=== PATIENT | female | born 2005 | race Hispanic/Latino ===

== ENCOUNTER 2025-02-19 19:13 | Emergency (ER) | payer SELFPAY ==
[2025-02-19] VITALS (7 sets, daily range): BP systolic 102–109; BP diastolic 66–71; PULSE 76–105; RESP 16; TEMP 36.7–36.9; O2SAT 98–100
--- NOTE | ~2025-02-19 | US_ITS ---
EXAMINATION: US pelvic complete w TV INDICATION: Missed . Fever. Comparison:No prior studies for comparison. TECHNIQUE: Multiple transabdominal and endovaginal sonographic images of the pelvis performed. FINDINGS: The uterus measures 11.2 x 5.6 x 6.7 cm. The endometrial complex measures 2.5 cm. The endometrial complex is thickened and heterogeneous. The right ovary measures 3.1 x 2.4 x 2.4 cm and the left ovary measures 2.9 x 1.6 x 1.8 cm. There are small follicles in each ovary. Normal doppler signal in both ovaries. There is no free fluid in the pelvis. There are no abnormal masses seen on either side. IMPRESSION: 1. Thickened heterogeneous endometrium measuring 2.5 cm, suspicious for retained products of conception. No intrauterine identified. Recommend follow- up with serial quantitative beta-hCG levels and ultrasound as clinically warranted. Reviewed, dictated and finalized at location O. IMPRESSION: 1. Thickened heterogeneous endometrium measuring 2.5 cm, suspicious for retaine d products of conception. No intrauterine identified. Recommend follo w-up with serial quantitative beta-hCG levels and ultrasound as clinically elly anted.
--- NOTE | 2025-02-19 20:16 | PC.NURSE ---
Called radiology to call in US for r/o ectopic
[2025-02-19 22:10] LABS: Hematocrit 33.5 % (37.0-47.0); Hemoglobin 11.0 g/dL (12.0-15.0); Immature Granulocyte Percent A 0.5 % (0-0.5); Lymphocytes Absolute Auto 3.40 K/mm3 (0.9-3.2); Mean Corpuscular HGB Conc 32.8 g/dl (32-36); Mean Corpuscular Hemoglobin 28.5 pg (26-34); Mean Corpuscular Volume 86.8 fl (80-100); Nucleated Red Blood Cells Absolute Auto 0.000 K/mm3 (0.0-0.012); Nucleated Red Blood Cells Perc 0.0 % (0.0-0.2); Platelet Count Result 300 k/mm3 (150-375); Red Blood Count 3.86 M/mm3 (4.2-5.4); White Blood Count 10.8 K/mm3 (4.5-10.0)
[2025-02-19 22:26] LABS: Alanine Aminotransferase 17 U/L (6-35); Albumin Level 4.2 g/dL (3.5-5.1); Alkaline Phosphatase 78 U/L (38-126); Anion Gap 9 mmol/L (4-12); Aspartate Amino Transferase 26 U/L (14-36); Bilirubin,Total 0.3 mg/dL (0.2-1.3); Blood Urea Nitrogen 8 mg/dL (7-17); Calcium 8.9 mg/dL (8.4-10.2); Carbon Dioxide 23 mmol/L (22-30); Chloride 107 mmol/L (98-107); Estimated CRCL calculation 116 ml/min; Estimated Glomerular Filt Rate > 60; Glucose 128 mg/dL (65-110); Lipase 199 U/L (23-300); Magnesium 1.8 mg/dL (1.6-2.3); Potassium 3.8 mmol/L (3.4-5.0); Sodium 139 mmol/L (137-145); Total Protein 7.2 g/dL (6.3-8.2)
[2025-02-19 22:41] LABS: Beta HCG Quantitative 5113.00 mIU/ML
--- NOTE | 2025-02-19 22:41 | ED.FEMALEGU ---
HPI - Female Genitourinary General Chief complaint: PROOFER Stated complaint: incomplete Time Seen by Provider: 02/19/25 21:59 History of Present Illness HPI Narrative: Patient is 20-year-old female who presents emergency department this evening complaining of a missed . Patient states that on Saturday of this week she went to a clinic requesting an . States that at that time she was told she is approximately 8 weeks . Patient states that this is her 2nd , and has had two full-term births. Patient states that she was administered for pills of misoprostol which she took on Saturday but did not pass any tissue, only light bleeding. Patient called the clinic again on and was instructed to come in for another dose and was administered an additional 4 pills of misoprostol, however, patient has not passed any products of conceptions patient call the clinic again and informed her that they would not be able to see her until Saturday of next week. Patient did not want to wait until then so she decided to come here for further evaluation. States that she has not established with a single OB, she states that she always goes to an OB Clinic and sees whoever is on-call. Denies any active bleeding, abdominal pain. No additional symptoms or concerns at this time. Related Data Allergies Allergy/AdvReac Type Severity Reaction Status Date / Time No Known Allergies Allergy Verified 02/19/25 19:45 Review of Systems Review of Systems: All systems are reviewed and are negative unless stated otherwise in the HPI. Exam Narrative: General: Alert, awake, afebrile, in no acute distress. HEENT: PERRL, no rhinorrhea, no post nasal drip, oropharynx clear. Neck: Trachea midline, no JVD, no lymphadenopathy. Cardiovascular: Regular rate and rhythm, no murmurs, rubs or gallops, no peripheral edema. Respiratory: Clear to auscultation bilaterally, no tachypnea, no wheezing, no rhonchi, no rubs, no respiratory distress. Abdomen: Soft, nontender, nondistended, no rebound, no guarding, no peritoneal signs. Musculoskeletal: No joint swelling or deformity, normal muscle tone. Skin: No rashes or petechia, no signs of infection. Psychiatric: Alert and oriented, normal behavior and judgment for situation. Neurological: Alert and oriented to person, place, and time. Follows all commands. No focal deficits, speech is clear and fluent. Course Vital Signs Vital signs: Vital Signs Temperature 98.4 F 02/19/25 19:34 Pulse Rate 105 H 02/19/25 19:34 Respiratory Rate 16 02/19/25 19:34 Blood Pressure 109/66 02/19/25 19:34 Pulse Oximetry 99 02/19/25 19:34 Oxygen Delivery Room Air 02/19/25 19:34 Temperature 98.4 F 02/19/25 19:34 Pulse Rate 105 H 02/19/25 19:34 Respiratory Rate 16 02/19/25 19:34 Blood Pressure 109/66 02/19/25 19:34 Pulse Oximetry 99 02/19/25 19:34 Oxygen Delivery Room Air 02/19/25 19:34 MDM - Female Genitourinary MDM Narrative Medical decision making narrative: The patient was evaluated by myself in the emergency department. History is obtained from patient who is an independent historian and physical exam was performed. External medical records were reviewed at this time. IV was established and pertinent tests were ordered. Laboratory results obtained revealing no acute process. Beta-hCG 5113. Imaging studies obtained included [study] which was independently interpreted by me revealing: IMPRESSION: 1. Thickened heterogeneous endometrium measuring 2.5 cm, suspicious for retained products of conception. No intrauterine identified. Recommend follow-up with serial quantitative beta-hCG levels and ultrasound as clinically warranted. At this time, case was discussed with the on-call OBGYN Dr. Shin at 2220 who recommended patient has repeat beta-hCG in 48 hours and to see him in the office in 3 days on Saturday at 1:00 p.m. Patient was informed of this plan at this time and is in agreement. Differential diagnosis considerations include missed , threatened miscarriage, live intrauterine . Comorbidities impacting this visit include none. I have evaluated and discussed social determinants of health with the patient that could potentially impact subsequent diagnosis and treatment plans. On repeat assessment of the patient, reevaluation revealed that the patient is doing well and is in no acute distress. Patient symptoms have improved since she arrived to our emergency department. Repeat vital signs were all reviewed and noted to be stable. Differential diagnosis and treatment plan were discussed with the patient at bedside. Patient agrees with discussion and after shared medical decision making agrees with discharge. All questions were answered to the patient's satisfaction. Patient will follow up with OB in 3 days. Patient was provided with strict return precautions and instructed to return to the emergency department if any new or worsening symptoms develop. The patient was discharged in stable condition. Lab Data 02/19/25 22:05 02/19/25 22:05 Labs: Lab Results 02/19/25 Range/Units 22:05 WBC 10.8 H (4.5-10.0) K/mm3 RBC 3.86 L (4.2-5.4) M/mm3 Hgb 11.0 L (12.0-15.0) g/dL Hct 33.5 L (37.0-47.0) % MCV 86.8 (80-100) fl MCH 28.5 (26-34) pg MCHC 32.8 (32-36) g/dl RDW 14.0 (11.5-14.5) % Plt Count 300 (150-375) k/mm3 MPV 9.4 (7.4-10.4) fl Immature Gran % (Auto) 0.5 (0-0.5) % Neut % (Auto) 55.8 (45.5-73.1) % Lymph % (Auto) 31.5 (18.3-44.2) % [place] % (Auto) 6.2 (2.6-8.5) % Eos % (Auto) 5.5 H (0-4.4) % Baso % (Auto) 0.5 (0.2-1.2) % Lymph # (Auto) 3.40 H (0.9-3.2) K/mm3 [place] # (Auto) 0.7 H (0.1-0.6) K/mm3 Eos # (Auto) 0.6 H (0-0.3) K/mm3 Baso # (Auto) 0.1 (0.0-0.1) K/mm3 Abs Immat Gran (auto) 0.05 H (0.00-0.031) K/mm3 Absolute Neuts (auto) 6.0 (1.3-6.7) K/mm3 Absolute Nucleated RBC 0.000 (0.0-0.012) K/mm3 Nucleated RBC % 0.0 (0.0-0.2) % Sodium 139 (137-145) mmol/L Potassium 3.8 (3.4-5.0) mmol/L Chloride 107 (98-107) mmol/L Carbon Dioxide 23 (22-30) mmol/L Anion Gap 9 (4-12) mmol/L BUN 8 (7-17) mg/dL Creatinine 0.53 L (0.7-1.0) mg/dL Estim Creat Clear Calc 116 ml/min Estimated GFR > 60 (59 - ) Glucose 128 H (65-110) mg/dL Calcium 8.9 (8.4-10.2) mg/dL Magnesium 1.8 (1.6-2.3) mg/dL Total Bilirubin 0.3 (0.2-1.3) mg/dL AST 26 (14-36) U/L ALT 17 (6-35) U/L Alkaline Phosphatase 78 (38-126) U/L Total Protein 7.2 (6.3-8.2) g/dL Albumin 4.2 (3.5-5.1) g/dL Lipase 199 (23-300) U/L Beta HCG, Quant 5113.00 mIU/ML Discharge Plan Discharge Clinical Impression: Retained products of conception Patient Disposition: Home Condition: Improved Instructions: Antibiotic Form Additional Instructions: Please follow-up with the OBGYN Dr. Shin on Thursday 02/22 at his clinic at 1PM. You will need to have blood work drawn on Wednesday 02/21 for a repeat beta-hCG annual needs return to the emergency department to have this blood work drawn. Return to the ED if any new or worsening symptoms occurred between now and your appointment. Patient Language: Sammarinese Follow-up/Referrals: Ren Shin MD [Physician, STRINGED INSTRUMENT REPAIRER] - 3 Days PHYSICIAN,[facility] [Primary Care Provider, Internal Medicine] Time of Disposition: 22:44
== END 2025-02-19 23:03 | disposition home or self-care (01) ==
PROVIDERS: Emergency Provider Emergency Medicine
DX: O02.1 Missed abortion (principal)
CPT/HCPCS: 36415; 76830; 76856; 80053; 83690; 83735; 84702; 85025; 99284